=== PATIENT | male | born 1985 | race African-American/Black ===

== ENCOUNTER → 2020-10-07 08:26 | Outpatient (BNVA) | payer OTHER, SELFPAY | PROVIDERS: Visit Provider Internal Medicine | DX: S80.12XA Contusion of left lower leg, initial encounter (principal); W20.8XXA Other cause of strike by thrown, projected or falling object, initial encounter | CPT/HCPCS: 73590; 99202 ==

== ENCOUNTER → 2020-10-26 09:15 | Outpatient (BNVA) | payer OTHER, SELFPAY | PROVIDERS: Visit Provider Physician Assistant | DX: M54.5 Low back pain (principal); M25.511 Pain in right shoulder | CPT/HCPCS: 99202 ==

== ENCOUNTER → 2020-10-29 10:18 | Outpatient (BNVA) | payer OTHER, SELFPAY | PROVIDERS: Visit Provider Physician Assistant Medical | DX: M54.5 Low back pain (principal); M25.511 Pain in right shoulder | CPT/HCPCS: 99213 ==

== ENCOUNTER → 2020-11-04 09:28 | Outpatient (BNVA) | payer OTHER, SELFPAY | PROVIDERS: Visit Provider Physician Assistant | DX: M25.511 Pain in right shoulder (principal); M25.521 Pain in right elbow; M54.5 Low back pain | CPT/HCPCS: 72100; 99214 ==

== ENCOUNTER → 2020-11-18 15:15 | Outpatient (BNVA) | payer OTHER, SELFPAY | PROVIDERS: Visit Provider Physician Assistant | DX: M25.511 Pain in right shoulder (principal); M25.521 Pain in right elbow; M54.5 Low back pain | CPT/HCPCS: 99213 ==

== ENCOUNTER 2020-12-02 08:00 | Outpatient (RCR) | payer OTHER, SELFPAY ==
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
== END 2020-12-02 10:24 | disposition other institution (70) ==
LOC: HO.PT 08:00
PROVIDERS: Visit Provider Physician Assistant Medical
DX: M54.5 Low back pain (principal)
CPT/HCPCS: 97110; 97112; 97161

== ENCOUNTER → 2020-12-02 09:22 | Outpatient (BNVA) | payer OTHER, SELFPAY | PROVIDERS: Visit Provider Physician Assistant | DX: S16.1XXD Strain of muscle, fascia and tendon at neck level, subsequent encounter (principal); S76.319D Strain of muscle, fascia and tendon of the posterior muscle group at thigh level, unspecified thigh, subsequent encounter; V89.2XXD Person injured in unspecified motor-vehicle accident, traffic, subsequent encounter | CPT/HCPCS: 99213 ==

== ENCOUNTER → 2020-12-17 13:02 | Outpatient (BNVA) | payer OTHER, SELFPAY | PROVIDERS: Visit Provider Internal Medicine | DX: M54.2 Cervicalgia (principal) | CPT/HCPCS: 99214 ==

== ENCOUNTER → 2020-12-28 15:18 | Outpatient (BNVA) | payer OTHER, SELFPAY | PROVIDERS: Visit Provider Physician Assistant | DX: S39.012D Strain of muscle, fascia and tendon of lower back, subsequent encounter (principal); V89.2XXD Person injured in unspecified motor-vehicle accident, traffic, subsequent encounter; M54.2 Cervicalgia; M25.511 Pain in right shoulder | CPT/HCPCS: 99214 ==

== ENCOUNTER → 2021-01-11 15:25 | Outpatient (BNVA) | payer OTHER, SELFPAY | PROVIDERS: Visit Provider Physician Assistant | DX: S39.012D Strain of muscle, fascia and tendon of lower back, subsequent encounter (principal); V89.2XXD Person injured in unspecified motor-vehicle accident, traffic, subsequent encounter; M54.2 Cervicalgia; M25.511 Pain in right shoulder | CPT/HCPCS: 99213 ==

== ENCOUNTER 2021-02-01 09:00 | Outpatient (RCR) | payer OTHER, SELFPAY ==
--- NOTE | 2020-12-11 08:58 | MHC.PT.EP ---
[facility] [place] [facility] [place] Office [place] [facility] [address] Carlos Velazqeuz [address] [phone] F: [phone] F: [phone] F: [phone] F: [phone] Physical Therapy Plan of Care Date of Evaluation: 12/10/20 Date of Surgery: n/a Diagnosis: cervical strain, hamstring pain Assessment: Patient is a 35 year old R handed male who presents with s/s consistent with c-spine pain and hamstring pain. His s/s seem to be consistent with meniscal pathology to some degree. 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 Patient past medical history includes recent PT for lumbar injury. Current impairments include pain, ROM, strength, safety, posture, independence, activity tolerance and functional mobility. Functional limitations include decreased ability to walk, stand, transfer, negotiate stairs, sleep, exercise, lift, and perform weight bearing activities.. Patient is motivated with good rehab potential. Skilled PT will address impairments and functional limitations in order to achieve goals. Frequency and Duration: The patient will be seen 2x/week for 6 weeks Short Term Goals: I with HEP - 2 weeks Reduced c-spine tissue tension to absent - 3 weeks Improved postural awareness - 3 weeks Check Clerk Goals: Able to negotiate stairs pain free - 4 weeks Light plyometics pain free on shuttle - 5 weeks Pain free with all activities - 6 weeks Safe return to all work duties - 6 weeks Treatment Plan: Modalities to reduce pain, spasms and effusion. Manual therapy to restore motion and function. Therapeutic exercise to improve strength and flexibility. Neuromuscular re-education for posture and balance. Therapeutic activities to return to functional activities of daily living. Electronically signed by: Kevin Galarza, PT Please sign and return to therapist. Thank you for your referral.
--- NOTE | 2021-02-18 13:36 | MHC.PT.DC ---
[facility] [place] [facility] [place] Office [place] Office [address]az[address] [phone] F: [phone] F: [phone] F: [phone] F: [phone] Physical Therapy Discharge Report Diagnosis: cervical strain, hamstring pain Date of Surgery: n/a Date of Evaluation: 12/10/20 Date of Discharge: Treatments to Date: 14 Cancellations to Date: 0 No Shows to Date: 0 Discharge Status: Recommend MD Follow-up Discharge Summary: We will d/c from PT with HEP. Pt has had variable progress with good days and bad days. He also has a lot of personal factors seemingly inhibiting progress.. Electronically signed by: Kevin Galarza PT Please sign and return to therapist. Thank you for your referral.
== END 2021-02-18 13:37 | disposition home or self-care (01) ==
LOC: HO.PTCHIC 09:00
PROVIDERS: Visit Provider Physician Assistant
DX: S16.1XXA Strain of muscle, fascia and tendon at neck level, initial encounter (principal); M79.18 Myalgia, other site
CPT/HCPCS: 97012; 97014; 97110; 97140; 97162